=== PATIENT | male | born 1980 | race Caucasian/White ===

== ENCOUNTER 2020-03-06 18:50 | Emergency (ER) | payer OTHER ==
[~2020-03-06] VITALS: Ht 170.2 cm; Wt 68.0 kg
[2020-03-06] MEDS ORDERED: OLANZAPINE 5 MG TABLET ONE (19:00)
[2020-03-06] MEDS: OLANZAPINE 5 MG TABLET PO ONE (19:05)
--- NOTE | 2020-03-06 19:07 | NUR ---
BIB AND [employer] FROM STREET TO ER BED 13. AAOX4. NOT IN RESP DISTRESS. AMBULATORY. CAME IN FOR SUICIDAL IDEATION W/ PLAN TO OD ON PILLS. PER PT, HE HAS BEEN ROAM AND WALKING AROUND THE STREET. HE STATES THAT HE HASNT BEEN SLEEPING FOR THE PAST 4 DAYS BECAUSE HE RAN OUT OF HIS PSYCH MEDS. PT TAKES ZYPREXA 10MG. PT IS HAVING AUDITORY HALLUCINATIONS, RANDOM VOICE NOT TELLING HIM TO HURT HIMSELF. DENIES HOMICIDAL IDEATION. PLACED IS STRIPPED OFF CLOTHING, GOWNED AND BELONGINGS PLACED IN LOCKER LOCATED IN UTILITY ROOM. 1:1 SITTER AT BEDSIDE. MD WAS AT BEDSIDE FOR EVAL ORDERS RECEIVED NOTED AND CARRIED OUT. MEDICATED ORDERED. WILL CONTINUE TO MONITOR
--- NOTE | 2020-03-06 19:14 | NUR ---
PT IS SEEKING VOLUNTARY PSYCH INPATIENT CARE.
[2020-03-06 19:42] LABS: BASOPHILS % (AUTO) 0.5 % (0.0-2.0); EOSINOPHILS % (AUTO) 0.9 % (0.0-6.0); HEMATOCRIT 48 % (39-51); HEMOGLOBIN 16.2 g/dL (13.5-17.5); LYMPHOCYTES # (AUTO) 1.6 /CMM (0.8-4.8); LYMPHOCYTES % (AUTO) 18.9 % (20.0-44.0); MEAN CORPUSCULAR HGB CONC 34 g/dl (31.0-36.0); MEAN CORPUSCULAR VOLUME 96 fL (80-96); MONOCYTES % (AUTO) 11.8 % (2.0-12.0); NEUTROPHILS # (AUTO) 5.8 /CMM (1.8-8.9); NEUTROPHILS % (AUTO) 67.9 % (43.0-81.0); PLATELET COUNT (AUTO) 212 /CMM (150-450); RED BLOOD CELL COUNT(AUTO) 4.97 MIL/uL (4.5-6.0); WHITE BLOOD COUNT (AUTO) 8.6 K/uL (4.3-11.0)
[2020-03-06 19:51] LABS: CALCIUM, SERUM 8.8 mg/dL (8.5-10.1); CARBON DIOXIDE 29 mmol/L (21-32); CHLORIDE 102 mmol/L (98-107); CREATININE 0.9 mg/dL (0.6-1.3); GLUCOSE 111 mg/dL (74-106); POTASSIUM 3.9 mmol/L (3.5-5.1); SODIUM SERUM 137 mmol/L (136-145); UREA NITROGEN, BLOOD 17 mg/dL (7-18)
[2020-03-06 20:05] LABS: ALANINE AMINOTRANSFERASE 23 U/L (12-78); ALKALINE PHOSPHATASE 41 U/L (46-116); ASPARTATE AMINOTRANSFERASE 20 U/L (15-37); BILIRUBIN,DIRECT 0.2 mg/dL (0.0-0.2); BILIRUBIN,TOTAL 1.2 mg/dL (0.2-1.0); SALICYLATE 3.6 mg/dL (2.8-20.0); TOTAL PROTEIN, SERUM 6.6 g/dL (6.4-8.2)
[2020-03-06 20:06] LABS: ACETAMINOPHEN < 2 ug/ml (10-30); ALCOHOL, BLOOD < 3 mg/dL (0-0)
[2020-03-06 20:51] LABS: APPEARANCE,URINE Clear (CLEAR); BILIRUBIN,URINE MODERATE (NEGATIVE); BLOOD, URINE Negative Ery/uL (NEGATIVE); COLOR,URINE Yellow (YELLOW); KETONES,URINE Trace (NEGATIVE); LEUKOCYTE ESTERASE ,URINE Negative (NEGATIVE); NITRITE, URINE Negative (NEGATIVE); PH,URINE 5.5 (5.0-8.0); PROTEIN,URINE 30 mg/dl (NEGATIVE); UGLUCOSE Negative (NEGATIVE)
[2020-03-06 20:55] LABS: BACTERIA,URINE Rare /HPF (None Seen); RBC,URINE NONE SEEN /HPF (0-2); SQUAMOUS EPITHELIAL CELL,UR Few /HPF (None Seen); WBC,URINE NONE SEEN /HPF (0-3)
--- NOTE | 2020-03-06 23:29 | NUR ---
CLINICAL INFORMATION FAXED TO [facility]
--- NOTE | 2020-03-07 02:41 | NUR ---
JAMIE, CALLED FROM [facility], RE: PT IS GOING TO [facility] UN[address] DR. BARRERA IS THE ACCEPTING MD. CALL FOR REPORT.
--- NOTE | 2020-03-07 03:22 | NUR ---
CALLED CALL THE [facility] FOR TRANSPORTATION. CONFIRMATION: [id number]
--- NOTE | 2020-03-07 04:27 | NUR ---
REPORT GIVEN TO DAVID MCCANN FROM [facility]
--- NOTE | 2020-03-07 05:39 | NUR ---
REPORT GIVEN TO [phone] FOR TRANSPORTATION [facility]
[2020-03-07 05:40] VITALS: BP 125/73
== END 2020-03-07 05:41 | disposition short-term general hospital (02) ==
LOC: ER 18:53
DX: R45.851 Suicidal ideations (principal); F32.9 Major depressive disorder, single episode, unspecified; G47.00 Insomnia, unspecified; F25.9 Schizoaffective disorder, unspecified; F17.200 Nicotine dependence, unspecified, uncomplicated; Z60.2 Problems related to living alone; Z59.0 Homelessness
CPT/HCPCS: 36415; 80048; 80076; 80305; 80307; 80329; 81001; 85025; 99285; G0480; 81000-TC